=== PATIENT | female | born 1990 | race Caucasian/White ===

== ENCOUNTER 2016-06-30 02:36 | Emergency (ER) | payer OTHER ==
[2016-06-30 02:43] VITALS: TEMP 98.4
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
[2016-06-30 03:40] LABS: % IMMATURE GRANULYOCYTES 0.2 % (0.0-1.1); ABSOLUTE IMMATURE GRANULOCYTES 0.02 10^3/uL (0.00-0.10); ADD DIFF? NO; ADD MORPH? NO; ADD SCAN? NO; ATYPICAL LYMPHOCYTE FLAG 0 (0-99); FRAGMENT RBC FLAG 0 (0-99); HEMATOCRIT 38.3 % (38.0-47.0); HEMOGLOBIN 12.7 g/dL (12.6-16.3); LEFT SHIFT FLG 0 (0-99); LIPEMIA HEMOLYSIS FLAG 80 (0-99); MEAN CELL HEMOGLOBIN 31.5 pg (27.9-34.1); MEAN CELL HEMOGLOBIN CONCENTR. 33.2 g/dL (32.4-36.7); MEAN PLATELET VOLUME 10.5 fL (8.7-11.7); PLATELET CLUMPS FLAG 0 (0-99); PLATELET COUNT 231 10^3/uL (150-400); RED BLOOD CELL COUNT 4.03 10^6/uL (4.18-5.33); RED CELL DISTRIBUTION WIDTH 12.1 % (11.5-15.2)
[2016-06-30 03:56] LABS: ANION GAP 5 mEq/L (8-16); CALCIUM 8.7 mg/dL (8.5-10.4); CARBON DIOXIDE 28 mEq/l (22-31); CHLORIDE 108 mEq/L (97-110); CREATININE 0.6 mg/dL (0.6-1.0); GLOMERULAR FILTRATION RATE > 60; GLUCOSE 82 mg/dL (70-100); POTASSIUM 3.9 mEq/L (3.5-5.2); SODIUM 141 mEq/L (134-144)
[2016-06-30 04:24] VITALS: BP 121/61; PULSE 62; RESP 16; O2SAT 97
== END 2016-06-30 04:26 | disposition home or self-care (01) ==
DX: R06.02 Shortness of breath (principal)

== ENCOUNTER 2016-08-10 16:59 | Emergency (ER) | payer OTHER ==
--- NOTE | 2016-08-10 17:25 | CPEKG ---
Heart Rate: 97 RR Interval: 619 P-R Interval: 132 QRSD Interval: 98 QT Interval: 356 QTC Interval: 452 P Youngwood: 60 QRS Youngwood: 3 T Wave Youngwood: 69 EKG Severity - NORMAL ECG - EKG Impression: SINUS RHYTHM Electronically Signed By: Joy Dale 10-Aug-2016 19:46:03
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
[2016-08-10] MEDS ORDERED: METOCLOPRAMIDE 10 MG/2 ML VIAL IVP ONE (18:08)
[2016-08-10] MEDS ORDERED: NS 1,000 ML IV ONE ×2 (18:08→19:36)
[2016-08-10] MEDS ORDERED: KETOROLAC 30 MG/1 ML SDV IVP ONE (18:08)
[2016-08-10 18:43] LABS: ANION GAP 11 mEq/L (8-16); CALCIUM 9.4 mg/dL (8.5-10.4); CARBON DIOXIDE 23 mEq/l (22-31); CHLORIDE 103 mEq/L (97-110); CREATININE 0.7 mg/dL (0.6-1.0); GLOMERULAR FILTRATION RATE > 60; GLUCOSE 91 mg/dL (70-100); POTASSIUM 3.8 mEq/L (3.5-5.2); SODIUM 137 mEq/L (134-144)
[2016-08-10 18:44] LABS: % IMMATURE GRANULYOCYTES 0.4 % (0.0-1.1); ABSOLUTE IMMATURE GRANULOCYTES 0.03 10^3/uL (0.00-0.10); ADD DIFF? NO; ADD MORPH? NO; ADD SCAN? NO; ATYPICAL LYMPHOCYTE FLAG 10 (0-99); FRAGMENT RBC FLAG 0 (0-99); HEMATOCRIT 39.2 % (38.0-47.0); HEMOGLOBIN 13.6 g/dL (12.6-16.3); LEFT SHIFT FLG 0 (0-99); LIPEMIA HEMOLYSIS FLAG 90 (0-99); MEAN CELL HEMOGLOBIN 31.6 pg (27.9-34.1); MEAN CELL HEMOGLOBIN CONCENTR. 34.7 g/dL (32.4-36.7); MEAN CELL VOLUME 91.2 fL (81.5-99.8); MEAN PLATELET VOLUME 10.1 fL (8.7-11.7); PLATELET CLUMPS FLAG 10 (0-99); PLATELET COUNT 315 10^3/uL (150-400); RED CELL DISTRIBUTION WIDTH 11.7 % (11.5-15.2)
[2016-08-10] MEDS ORDERED: KETAMINE 100 MG/10 ML SYR IVP ONE (19:20)
[2016-08-10] MEDS ORDERED: KETAMINE 100 MG/10 ML SYR ONE (19:26)
[2016-08-10] MEDS ORDERED: ONDANSETRON 4 MG/2 ML VIAL ONE (19:26)
[2016-08-10] MEDS ORDERED: ONDANSETRON 4 MG/2 ML VIAL IVP ONE (19:28)
[2016-08-10 20:15] VITALS: TEMP 98.2
[2016-08-10 21:09] VITALS: BP 109/62; PULSE 85; RESP 16; O2SAT 94
== END 2016-08-10 21:08 | disposition home or self-care (01) ==
DX: G43.B0 Ophthalmoplegic migraine, not intractable (principal)
CPT/HCPCS: 96374; J1200; J1885; J2405; J2765

== ENCOUNTER 2018-01-20 11:46 | Observation (INO) | payer BC ==
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
== END 2018-01-20 13:15 | disposition home or self-care (01) ==
LOC: FLD 11:46
PROVIDERS: ADMIT Obstetrics & Gynecology; ATTEND Obstetrics & Gynecology
DX: Z03.79 Encounter for other suspected maternal and fetal conditions ruled out (principal)
CPT/HCPCS: 59025; G0378

== ENCOUNTER 2018-02-12 23:47 | Inpatient (IN) | payer BC ==
[2018-02-13] MEDS ORDERED: LIDOCAINE 1% 300 MG/30 ML SDV SC PRN (02:35)
[2018-02-13] MEDS ORDERED: IBUPROFEN 600 MG TAB PO PRN (02:35)
[2018-02-13] MEDS ORDERED: OLIVE OIL 118 ML BTL MISC PRN (02:35)
[2018-02-13] MEDS ORDERED: EPSOM SALT 454 GM TP PRN (02:35)
[2018-02-13] MEDS ORDERED: MISOPROSTOL 200 MCG TAB PR PRN (02:35)
[2018-02-13] MEDS ORDERED: OXYTOCIN/RINGERS LACTATE 1,000 ML IV PRN (02:35)
[2018-02-13] MEDS ORDERED: TERBUTALINE SULFATE 1 MG/ML VIAL IV PRN (02:35)
[2018-02-13] MEDS ORDERED: LR 1,000 ML IV PRN (02:35)
[2018-02-13 03:24] LABS: PLATELET COUNT 253 10^3/uL (150-400)
--- NOTE | 2018-02-13 05:17 | PDGENHP ---
History and Physical - Chief Complaint Early labor - History of Present Illness Alfonso is a 27 yo G1 at 40w5d today by MACI of 02/08/18 (LMP cw 1st tri US) who presented early this morning with regular painful contractions that had been going on for most of the day on the and increased in intensity in the evening. Does not think her water broke, no bleeding. She's had prodromal labor sx all weekend. Was 3-4cm when I saw her in clinic on Sunday. GBS negative. overall uncomplicated - She has a h/o HSV1 cold sores and hasn't had any issues throughout , but questions whether she has anyting now although there's no visible lesion, just some unclear discomfort. Has not taken any antivirals. Also has h/o anxiety not on meds and h/o migraine/ chronic CASTANON also no meds and not a big issue during . Labs. A positive Antibody negative RPR NR Rubella IMMUNE Hep B neg HIV neg Parvo IMMUNE Varicella IMMUNE Toxo NON-IMMUNE AFP normal Panorama normal (they don't know gender) Glucola 101 GBS negative History Information - Allergies/Home Medication List Allergies/Adverse Reactions: No Known Allergies Allergy (Verified 08/10/16 17:03) Home Medications: Vit27&Calcium/Iron/FA [] 02/13/18 [Last Taken 02/12/18] I have personally reviewed and updated: family history, medical history, social history, surgical history Past Medical History: HSV1, anxiety, migraine/chronic CASTANON - Surgical History Additional surgical history: None - Family History Positive for: non-pertinent - Social History Smoking Status: Never smoked Alcohol Use: None Review of Systems Review of Systems: ROS: 10pt was reviewed & negative except for what was stated in HPI & below Physical Exam Physical Exam: Uncomfortable with contractions, but relaxed between. Belly soft, ND, NT. Gravid. Longitudinal lie. No obvious oral cold sore lesions. FHR 140bpm, mod andrei, accels present, no decels - Category I. [place] - Regular ctx's q 3 mins. SCE 5cm/90/-1 - AROM during this exam with thin meconium stained fluid. Lab Data & Imaging Review 02/13/18 03:12 WBC 14.50 10^3/uL (3.80-9.50) H 02/13/18 03:12 RBC 4.13 10^6/uL (4.18-5.33) L 02/13/18 03:12 Hgb 13.5 g/dL (12.6-16.3) 02/13/18 03:12 Hct 38.4 % (38.0-47.0) 02/13/18 03:12 MCV 93.0 fL (81.5-99.8) 02/13/18 03:12 MCH 32.7 pg (27.9-34.1) 02/13/18 03:12 MCHC 35.2 g/dL (32.4-36.7) 02/13/18 03:12 RDW 12.3 % (11.5-15.2) 02/13/18 03:12 Plt Count 253 10^3/uL (150-400) 02/13/18 03:12 MPV 10.4 fL (8.7-11.7) 02/13/18 03:12 Neut % (Auto) 76.8 % (39.3-74.2) H 02/13/18 03:12 Lymph % (Auto) 15.0 % (15.0-45.0) 02/13/18 03:12 Smyth % (Auto) 6.8 % (4.5-13.0) 02/13/18 03:12 Eos % (Auto) 0.4 % (0.6-7.6) L 02/13/18 03:12 Baso % (Auto) 0.3 % (0.3-1.7) 02/13/18 03:12 Nucleat RBC Rel Count 0.0 % (0.0-0.2) 02/13/18 03:12 Absolute Neuts (auto) 11.12 10^3/uL (1.70-6.50) H 02/13/18 03:12 Absolute Lymphs (auto) 2.18 10^3/uL (1.00-3.00) 02/13/18 03:12 Absolute Monos (auto) 0.99 10^3/uL (0.30-0.80) H 02/13/18 03:12 Absolute Eos (auto) 0.06 10^3/uL (0.03-0.40) 02/13/18 03:12 Absolute Basos (auto) 0.05 10^3/uL (0.02-0.10) 02/13/18 03:12 Absolute Nucleated RBC 0.00 10^3/uL (0-0.01) 02/13/18 03:12 Immature Gran % 0.7 % (0.0-1.1) 02/13/18 03:12 Immature Gran # 0.10 10^3/uL (0.00-0.10) 02/13/18 03:12 Patient ABO/Rh A POSITIVE 02/13/18 03:12 Antibody Screen NEGATIVE 02/13/18 03:12 Assessment & Plan Assessment: 27 yo G1 at 40w6d here with spontaneous labor. Labor: AROM now with thin mec, baby has looked good on the monitor. Expectant mgmt - she'd like to avoid Pitocin if possible. Pain: Doing well now, would like to avoid epidural if possible. Oral HSV: Due to questionable lesion recently, will treat with Valtrex 2g BID x 1 day. Counseled her that it's safe to kiss baby if there are no visible obvious lesions, which there are not. Asked her to check with authorization specialist. Rh pos, Rubella immune. GBS negative. ALICE
[2018-02-13] MEDS ORDERED: TERBUTALINE SULFATE 1 MG/ML VIAL ONE (05:20)
[2018-02-13] MEDS ORDERED: OXYTOCIN 10 UNIT/ML VIAL ONE (05:20)
[2018-02-13] MEDS ORDERED: MISOPROSTOL 200 MCG TAB ONE (05:20)
[2018-02-13] MEDS ORDERED: AMMONIA AROMATIC 1 EACH AMP IH ONE (05:20)
[2018-02-13] MEDS ORDERED: LIDOCAINE 1% 300 MG/30 ML SDV ONE (05:20)
[2018-02-13] MEDS ORDERED: OLIVE OIL 118 ML BTL ONE (05:20)
[2018-02-13] MEDS: valACYclovir 500 MG TAB PO SCH ×2 (05:24→22:30)
--- NOTE | 2018-02-13 08:23 | OBPROG ---
Labor Progress Note Assessment/Plan: Assessment: iup 40 5/7 weeks labor light [facility] Plan: 02/13/18 08:19 Subjective/Intrapartum Course: 02/13/18 08:20 patient is doing well. laboring in the tub. having a lot of back labor. discussed position changes. is doing some hands and knees in the tub. RN checked patient 30 minutes ago. minimal change from prior check. discussed rechecking in a while and augmenting if needed. occasional variable decels. overall status reassuring. discussed pain management options. patient has a sore in her mouth. discussed canker vs cold sore. has a hx of cold sores. will look at when patient out of the tub. started valtrex today. discussed avoiding kissing baby until resolved if cold sore. Objective: 02/13/18 03:12 Patient ABO/Rh A POSITIVE 02/13/18 03:12 - FHR Assessment Nieves FHR Pattern Variability: Moderate FHR Category: 2 - AP Antepartum Course: 02/13/18 08:23 [place] [facility] [facility] at 13 weeks to be able to deliver at [facility]. negative NIPT and AFP. hx cold sores. no hx genital hsv. hx migraines with aura and chronic headaches. hx anxiety and depression. mood worsened during . [facility] with [facility]. Oxytocin Orders Assessment - Pre-Induction/Augmentation Assessment Gestational Age: 40 week(s) and 5 day(s) ICD10 Worksheet Patient Problems: Problems Problem Status Onset Migraine Acute
--- NOTE | 2018-02-13 09:22 | PREANESOB ---
Obstetric Pre-Anesthesia Info - General Info Proposed Procedure: labor epidural : 1 Para: 0 MACI: 02/08/18 Gestational Age: 40 week(s) and 5 day(s) - Info Status: Full Term FHR Pattern: Reassuring - Labor Status Cervical Dilation per last OB SVE: 5 Pitocin: In Use, Planned Indications for Labor Analgesia: Augmentation of Labor Labor Epidural: Yes Anesthesia Allergies/Adverse Reactions: Allergy/AdvReac Type Severity Reaction Status Date / Time No Known Allergies Allergy Verified 08/10/16 17:03 Home Medications: Medication Instructions Recorded Vit27&Calcium/Iron/FA 02/13/18 [] Visit Medications: Generic Name Dose Route Start Last Admin Trade Name Freq PRN Reason Stop Dose Admin Lactated Ringer's 1,000 mls @ 0 mls/hr 02/13/18 02:35 Lr IV 02/14/18 02:34 PRN PRN SEE PROTOCOL CONDITIONS Protocol Per Protocol Oxytocin/Lactated Ringer's 1,000 mls @ 125 mls/hr 02/13/18 02:35 Pitocin 20 Units/Lr (Premix) IV PRN PRN Post bleeding Ibuprofen 600 mg 02/13/18 02:35 Motrin PO ONCE PRN post , pain Lidocaine HCl 300 mg 02/13/18 02:35 Lidocaine Hcl 1% SC 08/12/18 02:34 ONCE PRN episiotomy Magnesium Sulfate 454 gm 02/13/18 02:35 Epsom Salt TP 08/12/18 02:34 Q1H PRN perineal discomfort Misoprostol 800 - 1,000 mcg 02/13/18 02:35 Cytotec MA ONCE PRN Vaginal Atony/Bleeding [place] Oil 118 ml 02/13/18 02:35 Sweet Oil MISC 08/12/18 02:34 ONCE PRN perineal massage Terbutaline Sulfate 0.25 mg 02/13/18 02:35 Brethine IV 08/12/18 02:34 ONCE PRN Tachysystole Valacyclovir HCl 2,000 mg 02/13/18 09:00 02/13/18 05:24 Valtrex PO 02/13/18 21:01 2,000 mg Q12HRS ANNMARIE Administration Discontinued Medications Generic Name Dose Route Start Last Admin Trade Name Freq PRN Reason Stop Dose Admin Ammonia (Aromatic Spirit) Confirm 02/13/18 05:20 Ammonia Aromatic Administered 02/13/18 05:21 Dose 1 each IH .STK-MED ONE Lidocaine HCl Confirm 02/13/18 05:20 Lidocaine Hcl 1% Administered 02/13/18 05:21 Dose 300 mg .ROUTE .STK-MED ONE Misoprostol Confirm 02/13/18 05:20 Cytotec Administered 02/13/18 05:21 Dose 1,000 mcg .ROUTE .STK-MED ONE [place] Oil Confirm 02/13/18 05:20 Sweet Oil Administered 02/13/18 05:21 Dose 118 ml .ROUTE .STK-MED ONE Oxytocin Confirm 02/13/18 05:20 Pitocin Administered 02/13/18 05:21 Dose 40 unit .ROUTE .STK-MED ONE Terbutaline Sulfate Confirm 02/13/18 05:20 Brethine Administered 02/13/18 05:21 Dose 1 mg .ROUTE .STK-MED ONE - Anesthesia History Response to Local Anesthetics: Normal Anesthesia & Operative History: No Prior Problems Family Anesthesia History: Negative - Social History Substance Use/Abuse: Denies - Vital Signs Height/Weight (Nursing): Height 157.48 cm Weight 69.4 kg - Focused Exam Neck exam: FROM Mallampati Score: Class 2 Mouth exam: normal dental/mouth exam Pulmonary: no respiratory distress, clear to auscultation Cardiovascular: regular rate and rhythym, systolic murmur Labs: 02/13/18 03:12 Patient ABO/Rh A POSITIVE 02/13/18 03:12 - Plan Consent Signed and on Chart: Yes Patient/Guardian Understands and Agrees to Plan: Yes
[2018-02-13] MEDS ORDERED: ONDANSETRON 4 MG/2 ML VIAL IVP PRN (09:23)
[2018-02-13] MEDS ORDERED: NALOXONE HCL 0.4 MG/ML INJ IVP PRN ×2 (09:23→18:09)
[2018-02-13] MEDS ORDERED: PHENYLEPHRINE HCL 100 MCG/ML SYR IVP PRN ×2 (09:23→18:33)
[2018-02-13] MEDS ORDERED: METOCLOPRAMIDE 10 MG/2 ML VIAL IVP PRN (09:23)
[2018-02-13] MEDS ORDERED: fentaNYL 2MCG/ML/BUP 0.1% RTU 100 ML EP SCH (09:30)
[2018-02-13] MEDS ORDERED: LR 500 ML IV SCH (09:30)
[2018-02-13] MEDS ORDERED: LR 500 ML IV PRN (11:06)
--- NOTE | 2018-02-13 11:10 | OBPROG ---
Labor Progress Note Assessment/Plan: Assessment: iup 40 5/7 weeks labor light mec Plan: 02/13/18 08:19 Subjective/Intrapartum Course: 02/13/18 08:20 patient is doing well. laboring in the tub. having a lot of back labor. discussed position changes. is doing some hands and knees in the tub. RN checked patient 30 minutes ago. minimal change from prior check. discussed rechecking in a while and augmenting if needed. occasional variable decels. overall status reassuring. discussed pain management options. patient has a sore in her mouth. discussed canker vs cold sore. has a hx of cold sores. will look at when patient out of the tub. started valtrex today. discussed avoiding kissing baby until resolved if cold sore. 02/13/18 11:08 patient comfortable with epidural. we attempted to place IUPC prior to epidural but patient couldnt tolerate. IUPC placed without difficulty after epidural. sve unchanged. mvu were 40. agreeable to starting pitocin. occasional variable decels. status reassuring. Objective: 02/13/18 03:12 Patient ABO/Rh A POSITIVE 02/13/18 03:12 - SVE Dilation (cm): 5 Effacement (%): 80 Station: -2 Amniotic Fluid Color: Meconium Stained - Contraction Pattern Assessment Current Contraction Pattern: Regular - FHR Assessment Nieves FHR Pattern Variability: Moderate FHR Category: 2 - Procedures Non-surgical Procedures: IUPC - AP Antepartum Course: 02/13/18 08:23 initiated care with [facility]. transferred to [facility] at 13 weeks to be able to deliver at [facility]. negative NIPT and AFP. hx cold sores. no hx genital hsv. hx migraines with aura and chronic headaches. hx anxiety and depression. mood worsened during . met with wellness center. Oxytocin Orders Assessment - Pre-Induction/Augmentation Assessment Gestational Age: 40 week(s) and 5 day(s) ICD10 Worksheet Patient Problems: Problems Problem Status Onset Migraine Acute
[2018-02-13] MEDS ORDERED: OXYTOCIN/RINGERS LACTATE 500 ML IV SCH (11:30)
[2018-02-13] MEDS ORDERED: ACETAMINOPHEN 500 MG TAB PO ONE (15:36)
--- NOTE | 2018-02-13 16:12 | OBPROG ---
Labor Progress Note Assessment/Plan: Assessment: iup 40 5/7 weeks labor light [facility] Plan: 02/13/18 08:19 Subjective/Intrapartum Course: 02/13/18 08:20 patient is doing well. laboring in the tub. having a lot of back labor. discussed position changes. is doing some hands and knees in the tub. RN checked patient 30 minutes ago. minimal change from prior check. discussed rechecking in a while and augmenting if needed. occasional variable decels. overall status reassuring. discussed pain management options. patient has a sore in her mouth. discussed canker vs cold sore. has a hx of cold sores. will look at when patient out of the tub. started valtrex today. discussed avoiding kissing baby until resolved if cold sore. 02/13/18 11:08 patient comfortable with epidural. we attempted to place IUPC prior to epidural but patient couldnt tolerate. IUPC placed without difficulty after epidural. sve unchanged. mvu were 40. agreeable to starting pitocin. occasional variable decels. status reassuring. 02/13/18 16:04 patient still comfortable with epidural. has been in multiple different positions. continues to have intermittent variable decels. i examined patient and cervix was stretchy to 7 cm but still 5 cm when applied to cervix. had decel to the 70's after exam. pitocin was off. patient repositioned into hands and knees and 02 applied. had been having 160-180 mvu on 16 of pitocin. will continue to monitor closely and restart pitocin as needed. discussed indications for c section. will continue to follow closely. Objective: 02/13/18 03:12 Patient ABO/Rh A POSITIVE 02/13/18 03:12 - SVE Dilation (cm): 6, 7 Effacement (%): 90 Station: -2 Amniotic Fluid Color: Meconium Stained - Contraction Pattern Assessment Current Contraction Pattern: Regular - Procedures Non-surgical Procedures: FSE, IUPC - AP Antepartum Course: 02/13/18 08:23 initiated care with [facility] [place]. transferred to [facility] at 13 weeks to be able to deliver at [facility]. negative NIPT and AFP. hx cold sores. no hx genital hsv. hx migraines with aura and chronic headaches. hx anxiety and depression. mood worsened during . met with wellness center. Oxytocin Orders Assessment - Pre-Induction/Augmentation Assessment Gestational Age: 40 week(s) and 5 day(s) ICD10 Worksheet Patient Problems: Problems Problem Status Onset Migraine Acute
[2018-02-13] MEDS ORDERED: CEFAZOLIN 2 GM/DEXTROSE/100 ML BAG IV ONE (16:54)
[2018-02-13] MEDS ORDERED: LIDO/EPI 2% **for epidural** 20 ML SDV ONE (16:56)
[2018-02-13] MEDS ORDERED: ceFAZolin 2 GM/DEXTROSE 100 ML IV ONE (17:06)
[2018-02-13] MEDS ORDERED: LR 500 ML IV ONE (17:06)
--- NOTE | 2018-02-13 17:06 | OBPROG ---
Labor Progress Note Assessment/Plan: Assessment: iup 40 5/7 weeks labor light mec Plan: 02/13/18 08:19 Subjective/Intrapartum Course: 02/13/18 08:20 patient is doing well. laboring in the tub. having a lot of back labor. discussed position changes. is doing some hands and knees in the tub. RN checked patient 30 minutes ago. minimal change from prior check. discussed rechecking in a while and augmenting if needed. occasional variable decels. overall status reassuring. discussed pain management options. patient has a sore in her mouth. discussed canker vs cold sore. has a hx of cold sores. will look at when patient out of the tub. started valtrex today. discussed avoiding kissing baby until resolved if cold sore. 02/13/18 11:08 patient comfortable with epidural. we attempted to place IUPC prior to epidural but patient couldnt tolerate. IUPC placed without difficulty after epidural. sve unchanged. mvu were 40. agreeable to starting pitocin. occasional variable decels. status reassuring. 02/13/18 16:04 patient still comfortable with epidural. has been in multiple different positions. continues to have intermittent variable decels. i examined patient and cervix was stretchy to 7 cm but still 5 cm when applied to cervix. had decel to the 70's after exam. pitocin was off. patient repositioned into hands and knees and 02 applied. had been having 160-180 mvu on 16 of pitocin. will continue to monitor closely and restart pitocin as needed. discussed indications for c section. will continue to follow closely. 02/13/18 17:03 we have tried multiple positions changes and restarted low dose pitocin. patient is now having recurrent severe variable decles to the 70's despite position changes. sve - 7/80/-1 and head much better applied to cervix. discussed intolerance of labor. patient agreeable to proceeding with primary c section. consent signed. anesthesia notified. Objective: 02/13/18 03:12 Patient ABO/Rh A POSITIVE 02/13/18 03:12 - SVE Dilation (cm): 7 Effacement (%): 80 Station: -1 Amniotic Fluid Color: Meconium Stained - Contraction Pattern Assessment Current Contraction Pattern: Regular - Procedures Non-surgical Procedures: FSE, IUPC - AP Antepartum Course: 02/13/18 08:23 initiated care with [facility]. transferred to [facility] at 13 weeks to be able to deliver at [facility]. negative NIPT and AFP. hx cold sores. no hx genital hsv. hx migraines with aura and chronic headaches. hx anxiety and depression. mood worsened during . met with wellness center. Oxytocin Orders Assessment - Pre-Induction/Augmentation Assessment Gestational Age: 40 week(s) and 5 day(s) ICD10 Worksheet Patient Problems: Problems Problem Status Onset Migraine Acute
[2018-02-13] MEDS ORDERED: morphINE PF 5 MG/10 ML INJ ONE (17:13)
[2018-02-13] MEDS ORDERED: LR 1,000 ML IV SCH (17:30)
--- NOTE | 2018-02-13 17:30 | PREANESOB ---
Obstetric Pre-Anesthesia Info - General Info Proposed Procedure: : 1 Para: 0 MACI: 02/08/18 Gestational Age: 40 week(s) and 5 day(s) - Info Status: Full Term, Nieves - Labor Status Cervical Dilation per last OB SVE: 7 Station per last OB SVE: -1 Rupture of Membranes Date: 02/13/18 Rupture of Membranes Time: 04:39 Amniotic Fluid Color: Meconium Stained Pitocin: In Use PIH: No Section History: Primary Indications for Current Section: Non-reas. Status ( intolerance of labor) Anesthesia Allergies/Adverse Reactions: Allergy/AdvReac Type Severity Reaction Status Date / Time No Known Allergies Allergy Verified 08/10/16 17:03 Home Medications: Medication Instructions Recorded Vit27&Calcium/Iron/FA 02/13/18 [] Visit Medications: Generic Name Dose Route Start Last Admin Trade Name Freq PRN Reason Stop Dose Admin Diphenhydramine HCl 25 - 50 mg 02/13/18 09:23 Benadryl Injection IVP 08/12/18 09:22 Q6HRS PRN Itching Ephedrine Sulfate 10 mg 02/13/18 09:23 Ephedrine Sulfate IV 08/12/18 09:22 .Q2M PRN Hypotension Lactated Ringer's 1,000 mls @ 0 mls/hr 02/13/18 02:35 Lr IV 02/14/18 02:34 PRN PRN SEE PROTOCOL CONDITIONS Protocol Per Protocol Oxytocin/Lactated Ringer's 1,000 mls @ 125 mls/hr 02/13/18 02:35 Pitocin 20 Units/Lr (Premix) IV PRN PRN Post bleeding Lactated Ringer's 500 mls @ 0 mls/hr 02/13/18 09:30 Lr IV 08/12/18 09:29 CONT ANNMARIE As Directed Fentanyl/Bupivacaine HCl 100 mls @ 0 mls/hr 02/13/18 09:30 Fentanyl/Bupivacaine/Ns 2 Mcg/Ml 0.1% (Premix EP 02/23/18 09:29 CONT ANNMARIE Protocol As Directed Lactated Ringer's 500 mls @ 500 mls/hr 02/13/18 11:06 Lr IV 02/14/18 11:06 PRN PRN Maternal Hypotension Oxytocin/Lactated Ringer's 500 mls @ 0 mls/hr 12/26/18 11:30 02/13/18 11:27 Pitocin 30 Units/Lr (Premix) IV 08/12/18 11:29 500 mls CONT ANNMARIE Administration Protocol Per Protocol Cefazolin Sodium/Dextrose 100 mls @ 200 mls/hr 02/13/18 17:06 02/13/18 17:10 Ancef IV 02/13/18 17:35 100 mls ONCALL ONE Administration Protocol Lactated Ringer's 1,000 mls @ 125 mls/hr 02/13/18 17:30 Lr IV 02/14/18 17:29 CONT ANNMARIE Ibuprofen 600 mg 02/13/18 02:35 Motrin PO ONCE PRN post , pain Lidocaine HCl 300 mg 02/13/18 02:35 Lidocaine Hcl 1% SC 08/12/18 02:34 ONCE PRN episiotomy Magnesium Sulfate 454 gm 02/13/18 02:35 Epsom Salt TP 08/12/18 02:34 Q1H PRN perineal discomfort Metoclopramide HCl 20 mg 02/13/18 09:23 Reglan Injection IVP 08/12/18 09:22 Q6HRS PRN Nausea/Vomiting, Can't Take PO Misoprostol 800 - 1,000 mcg 02/13/18 02:35 Cytotec [place] ONCE PRN Vaginal Atony/Bleeding Naloxone HCl 0.4 mg 02/13/18 09:23 Narcan IVP 08/12/18 09:22 PRN PRN Respiratory depression Melcher [place] Oil 118 ml 02/13/18 02:35 Sweet Oil MISC 08/12/18 02:34 ONCE PRN perineal massage Ondansetron HCl 4 mg 02/13/18 09:23 Zofran IVP 02/14/18 09:22 Q4HRS PRN Nausea/Vomiting, Can't Take PO Phenylephrine HCl 100 mcg 02/13/18 09:23 Neosynephrine IVP 08/12/18 09:22 .Q2M PRN Hypotension Terbutaline Sulfate 0.25 mg 02/13/18 02:35 Brethine IV 08/12/18 02:34 ONCE PRN Tachysystole Valacyclovir HCl 2,000 mg 02/13/18 09:00 02/13/18 05:24 Valtrex PO 02/13/18 21:01 2,000 mg Q12HRS ANNMARIE Administration Discontinued Medications Generic Name Dose Route Start Last Admin Trade Name Dion PRN Reason Stop Dose Admin Acetaminophen 1,000 mg 02/13/18 15:36 02/13/18 16:02 Tylenol PO 02/13/18 15:37 1,000 mg ONCE ONE Administration Ammonia (Aromatic Spirit) Confirm 02/13/18 05:20 Ammonia Aromatic Administered 02/13/18 05:21 Dose 1 each IH .STK-MED ONE Cefazolin Sodium/Dextrose Confirm 02/13/18 16:54 Ancef Administered 02/13/18 16:55 Dose 2 gm IV .STK-MED ONE Lactated Ringer's 500 mls @ 0 mls/hr 02/13/18 17:06 Lr IV 02/13/18 17:07 ONCE ONE As Directed Lidocaine HCl Confirm 02/13/18 05:20 Lidocaine Hcl 1% Administered 02/13/18 05:21 Dose 300 mg .ROUTE .STK-MED ONE Lidocaine/Epinephrine Confirm 02/13/18 16:56 Xylocaine 2%-Epi 1:200,000 Administered 02/13/18 16:57 Dose 40 ml .ROUTE .STK-MED ONE Misoprostol Confirm 02/13/18 05:20 Cytotec Administered 02/13/18 05:21 Dose 1,000 mcg .ROUTE .STK-MED ONE Morphine Sulfate Confirm 02/13/18 17:13 Morphine Pf 5 Mg/10 Ml Administered 02/13/18 17:14 Dose 5 mg .ROUTE .STK-MED ONE Melcher [place] Oil Confirm 02/13/18 05:20 Sweet Oil Administered 02/13/18 05:21 Dose 118 ml .ROUTE .STK-MED ONE Oxytocin Confirm 02/13/18 05:20 Pitocin Administered 02/13/18 05:21 Dose 40 unit .ROUTE .STK-MED ONE Terbutaline Sulfate Confirm 02/13/18 05:20 Brethine Administered 02/13/18 05:21 Dose 1 mg .ROUTE .STK-MED ONE - Anesthesia History Response to Local Anesthetics: Not Applicable Anesthesia & Operative History: No Prior Problems - Vital Signs Height/Weight (Nursing): Height 157.48 cm Weight 69.4 kg - Focused Exam Neck exam: FROM Mallampati Score: Class 1 Mouth exam: normal dental/mouth exam Pulmonary: no respiratory distress Cardiovascular: regular rate and rhythym Labs: 02/13/18 03:12 Patient ABO/Rh A POSITIVE 02/13/18 03:12
[2018-02-13] MEDS ORDERED: ePHEDrine SULFATE 25 MG/5 ML SYR ONE (17:45)
[2018-02-13] MEDS ORDERED: PHENYLEPHRINE HCL 100 MCG/ML SYR ONE (17:46)
[2018-02-13] MEDS ORDERED: ONDANSETRON 4 MG/2 ML VIAL ONE (18:01)
[2018-02-13] MEDS ORDERED: LACTULOSE 20 GM/30 ML UDCUP PO PRN (18:20)
[2018-02-13] MEDS ORDERED: POLYETHYLENE GLYCOL 3350 17 GM PKT PO PRN (18:20)
[2018-02-13] MEDS ORDERED: SIMETHICONE 80 MG TAB CHEW PO PRN (18:20)
[2018-02-13] MEDS ORDERED: BISACODYL 10 MG SUPP PR PRN (18:20)
[2018-02-13] MEDS ORDERED: DOCUSATE SODIUM 100 MG CAP PO PRN (18:20)
[2018-02-13] MEDS ORDERED: PROMETHAZINE HCL 25 MG/ML INJ IVP PRN (18:20)
[2018-02-13] MEDS ORDERED: MAGNESIUM HYDROXIDE 30 ML UDCUP PO PRN (18:20)
--- NOTE | 2018-02-13 18:26 | OBDEL ---
Info Type: Primary Presentation at Delivery: Vertex L&D Analgesia/Anesthesia Type: Epidural GBS+: No Intrapartum Medications: Generic Name Dose Route Start Last Admin Trade Name Freq PRN Reason Stop Dose Admin Oxytocin/Lactated Ringer's 500 mls @ 0 mls/hr 02/13/18 11:30 02/13/18 11:27 Pitocin 30 Units/Lr (Premix) IV 08/12/18 11:29 500 mls CONT ANNMARIE Administration Protocol Per Protocol Valacyclovir HCl 2,000 mg 02/13/18 09:00 02/13/18 05:24 Valtrex PO 02/13/18 21:01 2,000 mg Q12HRS ANNMARIE Administration Discontinued Medications Generic Name Dose Route Start Last Admin Trade Name Freq PRN Reason Stop Dose Admin Acetaminophen 1,000 mg 02/13/18 15:36 02/13/18 16:02 Tylenol PO 02/13/18 15:37 1,000 mg ONCE ONE Administration Cefazolin Sodium/Dextrose 100 mls @ 200 mls/hr 02/13/18 17:06 02/13/18 17:10 Ancef IV 02/13/18 17:35 100 mls ONCALL ONE Administration Protocol - Hospital Course Intrapartum: 02/13/18 08:20 patient is doing well. laboring in the tub. having a lot of back labor. discussed position changes. is doing some hands and knees in the tub. RN checked patient 30 minutes ago. minimal change from prior check. discussed rechecking in a while and augmenting if needed. occasional variable decels. overall status reassuring. discussed pain management options. patient has a sore in her mouth. discussed canker vs cold sore. has a hx of cold sores. will look at when patient out of the tub. started valtrex today. discussed avoiding kissing baby until resolved if cold sore. 02/13/18 11:08 patient comfortable with epidural. we attempted to place IUPC prior to epidural but patient couldnt tolerate. IUPC placed without difficulty after epidural. sve unchanged. mvu were 40. agreeable to starting pitocin. occasional variable decels. status reassuring. 02/13/18 16:04 patient still comfortable with epidural. has been in multiple different positions. continues to have intermittent variable decels. i examined patient and cervix was stretchy to 7 cm but still 5 cm when applied to cervix. had decel to the 70's after exam. pitocin was off. patient repositioned into hands and knees and 02 applied. had been having 160-180 mvu on 16 of pitocin. will continue to monitor closely and restart pitocin as needed. discussed indications for c section. will continue to follow closely. 02/13/18 17:03 we have tried multiple positions changes and restarted low dose pitocin. patient is now having recurrent severe variable decles to the 70's despite position changes. sve - 7/80/-1 and head much better applied to cervix. discussed intolerance of labor. patient agreeable to proceeding with primary c section. consent signed. anesthesia notified. Indications for Delivery: Spontaneous Labor Vaginal Delivery - Labor and Delivery Onset of Contractions Date: 02/12/18 Onset of Contractions Time: 21:00 Rupture of Membranes Date: 02/13/18 Rupture of Membranes Time: 04:39 Amniotic Fluid Color: Meconium Stained Non-surgical Procedures: FSE, IUPC Operative Report - Delivery Pre-op Diagnoses: iup 40 5/7 weeks, intolerance of labor, protracted labor Post-op Diagnoses: same as preop plus baby op and nuchal cord x 1 History of Prior Section: No Nulliparous Prior to Delivery: Yes Indications for Current Section: Arrest of Descent, Arrest of Dilation , Non-reas. Status ( intolerance of labor), Other (Specify) ( intolearance of labor) Procedure: Unscheduled, Low Transverse Surgeon: Kaylee Trent Active Directory Specialist: Astrid Mccoy Complications: Nucal Cord Findings: baby in occiput posterior position with nuchal cord x 1 and thin umbilical cord EBL: 700 Data MACI: 02/08/18 Gestational Age: 40 week(s) and 5 day(s) Nieves Delivery Date: 02/13/18 Delivery Time: 17:47 Sex of Infant: Male ICD10 Worksheet Patient Problems: Problems Problem Status Onset Migraine Acute
[2018-02-13] MEDS ORDERED: MEPERIDINE 25 MG/0.5 ML AMP IVP PRN (18:33)
[2018-02-13] MEDS ORDERED: HYDROmorphONE/DILAUDID 1 MG/ML INJ IVP PRN (18:33)
[2018-02-13] MEDS ORDERED: fentaNYL 100 MCG/2 ML INJ IVP PRN (18:33)
[2018-02-13] MEDS ORDERED: LABETALOL HCL 5 MG/ML 20 ML MDV IVP PRN (18:33)
[2018-02-13] MEDS ORDERED: OXYCODONE/APAP 5/325 TAB PO PRN (18:33)
--- NOTE | 2018-02-13 18:36 | POSTANESTH ---
Post Anesthetic Evaluation Cardiovascular Status: Tx Hyper/Hypo-tension (treating epidural induced hypotension with fluids and phenylephrine boluses) Respiratory Status: Normal, Stable Level of Consciousness/Mental Status: Can Participate in Eval Pain Control: Adequate, Prn Tx Ordered Nausea/Vomiting Control: Adequate, Prn Tx Ordered Complications Possibly Related to Anesthesia: None Noted
--- NOTE | 2018-02-13 18:57 | GOP ---
DATE OF OPERATION: 02/13/2018 SURGEON: Kaylee Trent DO PREOPERATIVE DIAGNOSIS: Intrauterine at 40 and 5/7 weeks gestation. Light meconium-staine d fluid. intolerance of labor, protracted labor. POSTOPERATIVE DIAGNOSIS: Intrauterine at 40 and 5/7 weeks gestation. Light meconium-stain ed fluid. intolerance of labor, protracted labor, plus occiput posterior, plus nuchal cord x1 . PROCEDURE PERFORMED: FINDINGS: INDICATIONS: Patient is a 27-year-old 1, para 0 who is 40 and 5/7 weeks gestation. She pres ented this morning in early labor with regular painful contractions. She was 3 to 4 cm on arrival to Labor and Delivery. She continued to have strong regular contractions. Membranes were artificially ruptured during exam. Meconium-stained fluid was noted. The patient initially was laboring in the tub and was not making change in her cervix, so she used nitrous oxide for a while, and a later reque sted epidural pressure, which provided adequate pain relief. An intrauterine pressure catheter was p laced without difficulty and Pitocin was ultimately started. A Stephenson catheter was also placed. Evie ent had intermittent periods of variable decelerations while in labor and had 2 episodes of prolonged decelerations. status was overall reassuring and the Pitocin was discontinued. She was makin g slow progress and the Convent units were not adequate; however, patient was having regular contr actions. We tried multiple position changes and the patient did make change to 7 cm with multiple po sition changes, however, the baby began having decelerations with every single contraction. Because of the patient's slow progress in labor and intolerance of labor, decision was made to proceed with a primary low transverse section. Risks and benefits of the procedure were reviewed wi th the patient and the patient was properly consented. DESCRIPTION OF PROCEDURE: Patient was taken to the operating room with intravenous fluids in place. She had an epidural in place, which was bolused. She was then given 2 g of Ancef and placed on the operating room table in a dorsal supine position with a leftward tilt. Anesthesia was assessed and f ound to be adequate. A Pfannenstiel skin incision was then made 2 fingerbreadths above the pubic symphysis. The incision was then carried through to the underlying layer of fascia with the Bovie. The fascia was then nicke d in the midline and fascial incision was extended laterally. The superior aspect of the fascial inc ision was then grasped with a Isaias, tented up, and the underlying rectus muscle dissected off blunt ly with the Bovie. Attention was then turned to the inferior aspect of the fascial incision, which in a similar fashion was grasped with a Isaias, tented up, and the underlying rectus muscle dissected off bluntly with the Bovie. The rectus muscle was then in the midline. The peritoneum was identified, tented up, and entered sharply with the Metzenbaum scissors. The incision was extended superiorly and infer iorly with excellent visualization of the bladder. The bladder blade was then inserted. The vesicou terine peritoneum was identified, tented up, and entered sharply with the Metzenbaum scissors. The i ncision was extended laterally and the bladder flap was created digitally. The bladder blade was the n reinserted. The uterus was then incised in a low-transverse fashion with the scalpel. The uterine incision was extended laterally. Meconium-stained fluid was noted. The infant's head was then delivered through the incision. It was noted to be in the occiput posteri or presentation with a large amount of caput and cone head. The nuchal cord x1 was reduced at the in cision. The remainder of the infant was delivered without difficulty. Delayed cord clamping x1 sol te was performed. Cord was then clamped x2 and cut. The was handed off to waiting n urse practitioner. Cord blood was collected. There was not enough cord blood for gases so it was no t collected. The placenta was then delivered. The uterus was then exteriorized and cleared of all clots and debri s, and wrapped in a moist laparotomy sponge. The bladder blade was then reinserted. The hysterotomy was closed with 0 Vicryl in a running locked fashion. A second 0 Vicryl stitch was used to imbricat e the uterine incision. Ovaries uterus and tubes were unremarkable. The gutters were cleared of all clots and debris. Peritoneum was reapproximated with 3-0 Vicryl in a running fashion. Rectus muscl e was reapproximated with 2-0 Vicryl in a running fashion. Fascia was closed with 0 Vicryl in a runn ing fashion. Mary's fascia was reapproximated with 2-0 Vicryl in a running fashion, and the subcut icular tissue was closed with 3-0 Vicryl in a running fashion. Sponge, lap, needle count were correc t x2. The patient was transferred to recovery room in stable condition. /[id number]/MODL
[2018-02-13] MEDS: KETOROLAC 30 MG/1 ML SDV IVP SCH (20:19)
[2018-02-13] MEDS: ACETAMINOPHEN 325 MG TAB PO SCH (20:45)
[2018-02-13] MEDS: SENNOSIDES/DOCUSATE SODIUM TAB PO SCH (21:45)
[2018-02-14] MEDS: ACETAMINOPHEN 325 MG TAB PO SCH ×4 (00:30→20:17)
[2018-02-14] MEDS: KETOROLAC 30 MG/1 ML SDV IVP SCH ×3 (02:14→14:21)
--- NOTE | 2018-02-14 09:02 | OBPP ---
Progress Note Assessment/Plan: Assessment:27 [id number], POD #1 s/p primary LTCS secondary to nonreassuring status and arrest of dilation. Doing well. Plan:continue routine post op cares. Start po iron. DC Urinary catheter. Encourage ambulation. Germaine Cole MD, [facility] 02/14/18 09:45 Subjective/ Course: Pt doing well. Has been up out of bed and ambulated some. Currently sitting in a rocking chair. Pain well controlled. No N/V, sommer reg diet. going well. Mod lochia 02/14/18 09:49 Objective: 02/14/18 05:10 Patient ABO/Rh A POSITIVE 02/13/18 03:12 Temp Pulse Resp BP Pulse Ox 36.7 C 86 20 111/72 96 02/14/18 04:30 02/14/18 05:30 02/14/18 05:30 02/14/18 04:30 02/14/18 05:30 Intake and Output 02/13/18 02/14/18 02/14/18 17:59 05:59 17:59 Intake Total 3850 Output Total 4150 600 Balance -300 -600 Intake: Oral (ml) 1150 IV Intake (ml) 2700 Output: Urine (ml) 3450 600 Catheter 3450 600 Estimated Blood Loss (ml) 700 Other: Intake Quantity Yes Sufficient Number of Voids Catheter 1 gen - pleasant, NAD CV - RRR chest - CTAB abd - soft, + BS, fundus firm at u-1, dressing c/d/i ext - no edema, no calf tenderness Uterine Position/Fundal Height: Umbilicus -1 Uterine Tone: Firm
--- NOTE | 2018-02-14 09:18 | PDPAINCON ---
Pain Management Consultation Patient referred by : Miley - Subjective Pain at rest (/10): 1 Pain with activity (/10): 3 Pain is: low, well controlled Activity: able to ambulate - Objective Technique: spinal opioid Catheter site: no erythema/edema/exudate Sensory and motor exam: block has resolved, no apparent ill effects Vital signs: stable (Patient reports excellent pain control. She had some dizziness yesterday, which has resolved. No residual weakness/numbness, no c/p CASTANON.)
[2018-02-14] MEDS: FERRO-SEQUELS 65 MG TAB.ER PO SCH (12:22)
[2018-02-14] MEDS: SENNOSIDES/DOCUSATE SODIUM TAB PO SCH ×2 (12:22→20:18)
[2018-02-14] MEDS: IBUPROFEN 600 MG TAB PO SCH (20:16)
[2018-02-14] MEDS: oxyCODONE IR 5 MG TAB PO PRN (23:04)
[2018-02-15] MEDS: IBUPROFEN 600 MG TAB PO SCH ×4 (01:55→20:28)
[2018-02-15] MEDS: ACETAMINOPHEN 325 MG TAB PO SCH ×4 (01:56→20:29)
[2018-02-15] MEDS: oxyCODONE IR 5 MG TAB PO PRN ×3 (02:48→22:08)
[2018-02-15] MEDS: SENNOSIDES/DOCUSATE SODIUM TAB PO SCH ×2 (07:42→22:25)
--- NOTE | 2018-02-15 10:39 | OBPP ---
Progress Note Assessment/Plan: Assessment: 1) s/p primary LTCS secondary to nonreassuring status and arrest of dilation POD # 2 - pt is stable 2) Anemia - pt is asymptomatic, on iron Plan: Continue routine post op care Cont iron and colace support prn Plan for d/c home in am 02/1602/15/18 10:36 Subjective/ Course: Pt doing well. Has been up out of bed and ambulated some. Currently sitting in a rocking chair. Pain well controlled. No N/V, sommer reg diet. going well. Mod lochia 02/14/18 09:49 02/15/18 10:38 Pt seen and examined. Doing well with no complaints. Pain is well controlled with po meds-took Oxy IR last night and will try not to use during the day. Pt is OOB, sommer regular diet, voiding and passing flatus. No BM yet. Mod lochia. Denies any f/c/n/v/CP or SOB. BF is going well so far. Objective: 02/14/18 05:10 Patient ABO/Rh A POSITIVE 02/13/18 03:12 Temp Pulse Resp BP Pulse Ox 36.6 C 74 18 97/64 L 97 02/15/18 08:00 02/15/18 08:00 02/15/18 08:00 02/15/18 08:00 02/15/18 08:00 Uterine Position/Fundal Height: Umbilicus -2 Uterine Tone: Firm Physical Exam - Physical Exam General Appearance: WD/WN, alert, no apparent distress Respiratory: lungs clear, normal breath sounds Cardiac/Chest: regular rate, rhythm Abdomen: normal bowel sounds, non-tender, soft, flatus (+), incision (C/D/I, well approximnated) Extremities: non-tender, normal inspection Skin: normal color, warm/dry Neuro/Psych: alert, normal mood/affect, oriented x 3
[2018-02-15] MEDS: FERRO-SEQUELS 65 MG TAB.ER PO SCH (12:20)
[2018-02-16] MEDS: ACETAMINOPHEN 325 MG TAB PO SCH ×3 (02:24→13:55)
[2018-02-16] MEDS: IBUPROFEN 600 MG TAB PO SCH ×3 (02:25→15:00)
[2018-02-16] MEDS ORDERED: oxyCODONE IR 5 MG TAB PO PRN (05:00)
[2018-02-16] MEDS: FERRO-SEQUELS 65 MG TAB.ER PO SCH ×2 (08:40→08:42)
[2018-02-16 09:55] VITALS: BP 120/81
[2018-02-16] MEDS: SENNOSIDES/DOCUSATE SODIUM TAB PO SCH (11:57)
--- NOTE | 2018-02-16 12:14 | OBGCSDC ---
General Delivery Information - General Info : 1 Para: 1 Abortions: 0 Type: Primary L&D Analgesia/Anesthesia Type: Epidural, Spinal Admission Date: 02/12/18 Labs: Patient ABO/Rh A POSITIVE 02/13/18 03:12 Hct 33.3 % (38.0-47.0) L 02/14/18 05:10 - Hospital Course Antepartum: 02/13/18 08:23 initiated care with [facility]. transferred to [facility] at 13 weeks to be able to deliver at [facility]. negative NIPT and AFP. hx cold sores. no hx genital hsv. hx migraines with aura and chronic headaches. hx anxiety and depression. mood worsened during . met with [facility]. Intrapartum: 02/13/18 08:20 patient is doing well. laboring in the tub. having a lot of back labor. discussed position changes. is doing some hands and knees in the tub. RN checked patient 30 minutes ago. minimal change from prior check. discussed rechecking in a while and augmenting if needed. occasional variable decels. overall status reassuring. discussed pain management options. patient has a sore in her mouth. discussed canker vs cold sore. has a hx of cold sores. will look at when patient out of the tub. started valtrex today. discussed avoiding kissing baby until resolved if cold sore. 02/13/18 11:08 patient comfortable with epidural. we attempted to place IUPC prior to epidural but patient couldnt tolerate. IUPC placed without difficulty after epidural. sve unchanged. mvu were 40. agreeable to starting pitocin. occasional variable decels. status reassuring. 02/13/18 16:04 patient still comfortable with epidural. has been in multiple different positions. continues to have intermittent variable decels. i examined patient and cervix was stretchy to 7 cm but still 5 cm when applied to cervix. had decel to the 70's after exam. pitocin was off. patient repositioned into hands and knees and 02 applied. had been having 160-180 mvu on 16 of pitocin. will continue to monitor closely and restart pitocin as needed. discussed indications for c section. will continue to follow closely. 02/13/18 17:03 we have tried multiple positions changes and restarted low dose pitocin. patient is now having recurrent severe variable decles to the 70's despite position changes. sve - 7/80/-1 and head much better applied to cervix. discussed intolerance of labor. patient agreeable to proceeding with primary c section. consent signed. anesthesia notified. : Pt doing well. Has been up out of bed and ambulated some. Currently sitting in a rocking chair. Pain well controlled. No N/V, sommer reg diet. going well. Mod lochia 02/14/18 09:49 02/15/18 10:38 Pt seen and examined. Doing well with no complaints. Pain is well controlled with po meds-took Oxy IR last night and will try not to use during the day. Pt is OOB, sommer regular diet, voiding and passing flatus. No BM yet. Mod lochia. Denies any f/c/n/v/CP or SOB. BF is going well so far. 02/16/18 12:11 Pt is doing well today. She has good pain control with po meds. She is ambulating and voiding without difficulty and has had + BM. Baby is breast feeding well and she is beginning to get her milk in, nipples are ok. They feel ready to go home today. Vaginal - Diagnosis Amniotic Fluid Color: Meconium Stained - Procedures Non-surgical Procedures: FSE, IUPC - Delivery Providers Surgeon: Kaylee Trent Set Up Mechanic Coating Machines: Astrid Mccoy - Delivery Indications for Current Section: Arrest of Descent, Arrest of Dilation , Non-reas. Status ( intolerance of labor), Other (Specify) ( intolearance of labor) Non-surgical Procedures: FSE, IUPC Surgical Procedures: Unscheduled, Low Transverse Intra-op Complications: Nucal Cord EBL: 700 Data MACI: 02/08/18 Gestational Age: 41 week(s) and 1 day(s) Nieves Delivery Date: 02/13/18 Delivery Time: 17:47 Sex of : Male [place] Weight (gm): 3420 g Score (1 Min): 8 Score (5 Min): 8 Discharge Information - Discharge Information Prescriptions: oxyCODONE IR [Oxycodone Ir (*)] 5 - 10 mg PO Q4HRS PRN #30 tab PRN Reason: Pain, Severe Ibuprofen [Motrin (*)] 600 mg PO Q6H #30 tab Iron/Vit C/Docusate [Louie-Sequels 65 mg (*)] 1 each PO DAILY #30 tab.er Condition: Good Instruction/Follow Up: Two Weeks, Four Weeks, Six Weeks
--- NOTE | 2018-02-16 12:14 | OBPP ---
Progress Note Assessment/Plan: Assessment: 27 y/o POD #3 s/p LTCS secondary to intolerance to labor doing well Plan: D/c home today with Rx Ibuprofen, Tylenol and Oxy IR. Follow-up @ [facility] 2, 4 and 6 weeks. Call for fever, heavy vaginal bleeding, incisional issues or other concerns. 02/16/18 12:12 Subjective/ Course: Pt doing well. Has been up out of bed and ambulated some. Currently sitting in a rocking chair. Pain well controlled. No N/V, sommer reg diet. going well. Mod lochia 02/14/18 09:49 02/15/18 10:38 Pt seen and examined. Doing well with no complaints. Pain is well controlled with po meds-took Oxy IR last night and will try not to use during the day. Pt is OOB, sommer regular diet, voiding and passing flatus. No BM yet. Mod lochia. Denies any f/c/n/v/CP or SOB. BF is going well so far. 02/16/18 12:11 Pt is doing well today. She has good pain control with po meds. She is ambulating and voiding without difficulty and has had + BM. Baby is breast feeding well and she is beginning to get her milk in, nipples are ok. They feel ready to go home today. Objective: 02/14/18 05:10 Patient ABO/Rh A POSITIVE 02/13/18 03:12 Temp Pulse Resp BP Pulse Ox 36.3 C 62 16 120/81 H 96 02/16/18 08:00 02/16/18 08:00 02/16/18 08:00 02/16/18 08:00 02/16/18 08:00 Uterine Position/Fundal Height: Umbilicus -2 Uterine Tone: Firm Physical Exam - Physical Exam General Appearance: alert, no apparent distress Neck: non-tender, full range of motion, supple Respiratory: chest non-tender, lungs clear, normal breath sounds Cardiac/Chest: regular rate, rhythm Abdomen: normal bowel sounds, incision (c/d/i) Extremities: swelling (no), Karan's sign (neg)
== END 2018-02-16 15:00 | disposition home or self-care (01) | DRG 788 ==
LOC: OBSVTOIN 23:47 → FLD 23:47 → FOB 02-13 20:49
PROVIDERS: ADMIT Obstetrics & Gynecology; ATTEND Obstetrics & Gynecology
DX: O76 Abnormality in fetal heart rate and rhythm complicating labor and delivery (principal); O62.0 Primary inadequate contractions; O32.4XX0 Maternal care for high head at term, not applicable or unspecified; O69.82X0 Labor and delivery complicated by other cord entanglement, without compression, not applicable or unspecified; O77.0 Labor and delivery complicated by meconium in amniotic fluid; O32.6XX0 Maternal care for compound presentation, not applicable or unspecified; Z3A.40 40 weeks gestation of pregnancy; Z37.0 Single live birth
CPT/HCPCS: J0690; J1200; J1885; J2274; J2370; J2405; J2590; J3105

== ENCOUNTER → 2018-03-04 | Outpatient (CLI) | payer BC | LOC: FLACT 13:49 ==

== ENCOUNTER 2018-05-27 12:33 | Emergency (ER) | payer BC ==
[2018-05-27] MEDS ORDERED: NS 1,000 ML IV ONE (13:28)
--- NOTE | 2018-05-27 13:28 | EDPHY ---
H & P Stated Complaint: 6 days into Tx for Cdiff, blood in stool, severe abd pain Time Seen by Provider: 05/27/18 13:00 HPI/ROS: CHIEF COMPLAINT: Bloody stool and abdominal pain in the setting of cdif HISTORY OF PRESENT ILLNESS: This is a 27-year-old female who was diagnosed with Clostridium difficile months ago. Prior to that diagnosis she had undergone an emergency section on February 15 followed by a surgical wound infection and wound dehiscence, requiring surgical intervention. She completed antibiotics for that infection and was subsequently diagnosed with C diff. Since the diagnosis she has completed 2 rounds of vancomycin with improvement while on antibiotics. However, she has relapsed both times within three to four days of discontinuing antibiotics. This most recent bout, her 3rd, began about a week ago. She was started on vancomycin and is now on day 6. She has been given a prescription for Dificid but has not yet started that antibiotic. GI pathogen panel obtained on May 24 this positive for C diff. Last night she developed right-sided abdominal pain that she describes as severe. It persisted for about 5 hr and was occasionally sharp. She has not taken any pain medication. The pain has improved but is still present in the right lower quadrant. She has not had fever. She has not had vomiting. She has found that if she decreases her oral intake the pain improves and so she has had very little to eat over the past few days. She has been able to take fluids. No urinary symptoms. REVIEW OF SYSTEMS: A ten system review of systems was performed and is negative with the exception of the items mentioned in the HPI. She mentions some lumps underneath her skin on her leg. These are not new and had been evaluated by a peripheral edp equipment operator. They are not tender and have not changed significantly, but she thinks they might be a tiny bit larger. Past medical history: Clostridium difficile Past surgical history: section, Orthopedic surgeries Social history: She is here with her . 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 She has not been able to work since her emergency section. No tobacco or alcohol use. General Appearance: Alert. Vital signs reviewed. Afebrile. Eyes: Pupils equal and round, no conjunctival injection, no discharge. Anicteric. ENT, Mouth: Mucous membranes are slightly dry, no oropharyngeal erythema or edema. Neck: No lymphadenopathy, supple. Respiratory: Lungs are clear to auscultation; no wheezes, rales, or rhonchi. Cardiovascular: Regular rate and rhythm; no murmur, rub, or gallop. Gastrointestinal: Abdomen is soft with mild tenderness on right lower quadrant , no guarding, no masses or organomegaly, bowel sounds normal. Skin: Warm and dry, no rashes on exposed skin, normal color. Back: Nontender to palpation over the thoracolumbar spine. No CVAT. Extremities: No lower extremity edema, no calf tenderness or swelling. Neurological: Alert and oriented. Moving all four extremities easily and equally. Psychiatric: Normal affect. - Personal History LMP (Females 10-55): Over 28 Days Ago Current Tetanus Diphtheria and Acellular Pertussis (TDAP): Yes - Medical/Surgical History Hx Asthma: No Hx Chronic Respiratory Disease: No Hx Diabetes: No Hx Cardiac Disease: No Hx Renal Disease: No Hx Cirrhosis: No Hx Alcoholism: No Hx HIV/AIDS: No Hx Splenectomy or Spleen Trauma: No Other PMH: "BENIGN HEART MURMUR" cleared by cardio, ANKLE SURGERY, migraines, ANXIETY ( [facility] INFO [facility]) - Social History Smoking Status: Never smoked Constitutional: Initial Vital Signs Temperature (C) 37.1 C 05/27/18 12:35 Heart Rate 91 05/27/18 12:35 Respiratory Rate 16 05/27/18 12:35 Blood Pressure 122/84 H 05/27/18 12:35 O2 Sat (%) 95 05/27/18 12:35 O2 Delivery Mode Room Air Allergies/Adverse Reactions: cephalexin Allergy (Verified 05/27/18 12:39) Home Medications: Medication Instructions Recorded Vit27&Calcium/Iron/FA 02/13/18 [] Ibuprofen [Motrin (*)] 600 mg PO Q6H #30 tab 02/16/18 Vancomycin 05/27/18 Medical Decision Making ED Course/Re-evaluation: Abdominal pain and 1 bout of blood streaked stool in the setting of Clostridium difficile. I reviewed CBC, chemistries, urinalysis--all within normal limits. In the emergency department she received 1 L IV normal saline. She did not want to take pain medication. Abdominal exam was repeated and unchanged. She has no peritoneal signs. Her surgical incision is well healed. Is spoke with her infectious disease doctor, Dr. Acosta. He saw her recently and knows her well. He is concerned that she has been advancing her diet to quickly and that as soon as she deviated from a bland diet she begins to experience abdominal pain. At this point in time he does not recommend further testing. We discussed the possibility of a CT scan in the emergency department. Based upon her blood work and relatively benign abdominal exam, I do not feel that a CT scan is needed. He recommends that she follow an extremely bland diet for the next couple of months and that she begin the Dificid. I discussed this with her and she agrees to follow those instructions. She will follow up with him. We reviewed the danger signs that should prompt her to return. I considered appendicitis in my differential, given that she has some right lower quadrant tenderness. I do not think that this is appendicitis. Nor do I think that she has had a ruptured ovarian cyst. She is aware of these possibilities and will watch for any change in her condition. She does not have urinary tract infection. I do not suspect wound infection. 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 Eat the bland this diet that you can imagine. Dr. Acosta recommends that you stay on this diet for the next couple of months. It is okay to take [id number] pain medications for pain control if needed.Adult Pain & Fever Control: We recommend Acetaminophen (Tylenol) and Ibuprofen (Motrin,Advil) for pain and fever control. When fever is high or pain severe, both drugs can be used at the same time, but at different intervals. Please note the time differences. Your dose is: Acetaminophen 650mg every 4 to 6 hours Ibuprofen 400mg every 6 hours with food OR Note: do not take Acetaminophen with Hydrocodone (Vicodin, Lortab) or Oycodone (Percocet). These medications also contain Acetaminophen. No more than 3000mg of Acetaminophen should be taken in 24 hours (for an adult). 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 Referrals: Jon Oscar MD [Primary Care Provider] - As per Instructions Antony Acosta MD [Medical Doctor] - As per Instructions
[2018-05-27 13:37] LABS: PLATELET COUNT 359 10^3/uL (150-400)
[2018-05-27 14:57] VITALS: BP 128/84
== END 2018-05-27 14:57 | disposition home or self-care (01) ==
DX: A07.9 Protozoal intestinal disease, unspecified (principal); E86.9 Volume depletion, unspecified